=== PATIENT | male | born 1980 | race Caucasian/White ===

== ENCOUNTER 2017-04-23 10:25 | Emergency (ER) | payer OTHER ==
[~2017-04-23] VITALS: Ht 175.3 cm; Wt 159.8 kg
[2017-04-23 12:09] VITALS: BP 130/85
== END 2017-04-23 12:11 | disposition home or self-care (01) ==
LOC: ED 10:50
DX: M75.32 Calcific tendinitis of left shoulder (principal); Z90.49 Acquired absence of other specified parts of digestive tract
CPT/HCPCS: 99284

== ENCOUNTER → 2018-04-07 | Outpatient (CLI) | payer MEDICAID | END | disposition home or self-care (01) | LOC: WOUND 11:03 | PROVIDERS: ATTEND Family Medicine | DX: B37.89 Other sites of candidiasis (principal); E66.01 Morbid (severe) obesity due to excess calories; I10 Essential (primary) hypertension; F41.9 Anxiety disorder, unspecified; F32.9 Major depressive disorder, single episode, unspecified; Z87.891 Personal history of nicotine dependence; Z90.49 Acquired absence of other specified parts of digestive tract; Z68.43 Body mass index [BMI] 50.0-59.9, adult | CPT/HCPCS: 99214 ==

== ENCOUNTER 2018-12-18 14:40 | Emergency (ER) | payer MEDICAID ==
--- NOTE | 2018-12-18 14:54 | NUR ---
PT REFUSED CARE AFTER BEING INFORMED BY PA THAT THE ED DOES NOT ADMIN CORTISONE INJECTIONS DESPITE OFFER OF ALT STEROID MEDS.
== END 2018-12-18 14:56 | disposition left against medical advice (07) ==
LOC: ED 14:50
DX: M25.511 Pain in right shoulder (principal)
CPT/HCPCS: 99281